=== PATIENT | female | born 2000 | race African-American/Black ===

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

== ENCOUNTER 2024-01-18 09:12 | Emergency (ER) | payer MEDICAID, OTHER ==
[~2024-01-18] VITALS: Ht 157.5 cm; Wt 61.0 kg
[2024-01-18 09:23] VITALS: TEMP 98.2; O2SAT 100
[2024-01-18] MEDS: TETRACAINE 0.5% OPHTH DROPS 4ML BOTHEYE ONE (11:30)
[2024-01-18] MEDS: FLUORESCEIN SODIUM 1MG/STRIP BOTHEYE ONE (11:30)
[2024-01-18 12:15] LABS: CLARITY URINE CLEAR (CLEAR); COLOR URINE YELLOW (YELLOW); GLUCOSE URINE NEGATIVE (NEGATIVE); KETONES URINE NEGATIVE (NEGATIVE); LEUKOCYTE ESTERASE URINE NEGATIVE (NEGATIVE); NITRITE URINE POSITIVE (NEGATIVE); OCCULT BLOOD URINE NEGATIVE (NEGATIVE); PH URINE 7.5 (4.5-8.0); PROTEIN URINE NEGATIVE (NEGATIVE); SPECIFIC GRAVITY URINE 1.021 (1.005-1.030); UROBILINOGEN URINE 0.2 E.U./dL (0.2-1.0)
[2024-01-18 13:39] LABS: BACTERIA URINE 4+; RBC URINE NONE SEEN /hpf (0-2); SQUAMOUS EPITHELIAL CELL URINE 2+ /lpf (RARE/1+)
[2024-01-18 14:56] VITALS: BP 114/74; PULSE 68; RESP 19; O2SAT 99
== END 2024-01-18 14:57 | disposition home or self-care (01) ==
LOC: ER 09:12
DX: H00.11 Chalazion right upper eyelid (principal)
CPT/HCPCS: 81003; 99283